=== PATIENT | female | born 1975 | race African-American/Black ===

== ENCOUNTER 2017-10-21 17:56 | Emergency (ER) | payer OTHER ==
[~2017-10-21] VITALS: Ht 162.6 cm; Wt 74.8 kg
[~2017-10-21 17:56] MED LIST: AMLODIPINE BESY10 MG PO; AMOXICILLIN 50500 M1 PO; BACTRIM DS TAB1 EACH PO; DOXYCYCLINE 10100 MG PO; FLAGYL500 MG PO; FLONASE 0.05%50 MCG NASAL; MACROBID 100 M100 M1 PO; NORVASC 5 MG TAB5 MG PO; NORVASC10 MG PO; PROVENTIL HFA6.7 G1 INH; TRINATE TABLET1 TAB PO
[2017-10-21 17:59] VITALS: BP 179/125
[2017-10-21] MEDS ORDERED: NORVASC10 MG PO ×2 (18:03→18:21)
== END 2017-10-21 18:30 | disposition home or self-care (01) ==
LOC: ER 17:56
DX: I10 Essential (primary) hypertension (principal); Z76.0 Encounter for issue of repeat prescription

== ENCOUNTER 2019-01-26 09:48 | Emergency (ER) | payer OTHER ==
[~2019-01-26] VITALS: Ht 160 cm; Wt 77.1 kg
[2019-01-26 09:49] VITALS: BP 173/107
[2019-01-26] MEDS ORDERED: NORVASC10 MG PO (10:50)
== END 2019-01-26 11:09 | disposition home or self-care (01) ==
LOC: ER 09:48
DX: I10 Essential (primary) hypertension (principal); E66.9 Obesity, unspecified; Z68.30 Body mass index [BMI] 30.0-30.9, adult

== ENCOUNTER 2020-06-02 08:47 | Emergency (ER) | payer OTHER ==
[~2020-06-02] VITALS: Ht 160 cm; Wt 97.5 kg
[2020-06-02 09:38] LABS: URINE BILIRUBIN NEGATIVE (Negative); URINE BLOOD 3+ (Negative); URINE CLARITY CLOUDY; URINE COLOR RED; URINE GLUCOSE-RANDOM* NEGATIVE (Negative); URINE KETONES NEGATIVE (Negative); URINE LEUKOCYTES-REFLEX TRACE (Negative); URINE NITRITE-REFLEX NEGATIVE (Negative); URINE PROTEIN (DIPSTICK) 1+ (Negative); URINE SPECIFIC GRAVITY >= 1.030 (1.005-1.035); URINE UROBILINOGEN 0.2 E.U./dl (0.2-1.0)
[2020-06-02 10:47] LABS: MUCUS 0-3 Light strn/LPF (None Seen)
[2020-06-02 10:48] LABS: CASTS None Seen /LPF (None Seen); CRYSTALS None Seen /LPF (None Seen); SQUAMOUS 0-3 Few /LPF (0-3)
[2020-06-02 10:49] LABS: BACTERIA-REFLEX 1-9 Few /HPF (None Seen); URINE WBC-REFLEX 0-5 Rare /HPF (0-5)
[2020-06-02 12:52] VITALS: BP 152/92
[2020-06-02] MEDS ORDERED: HYDROCODON-ACE1 EAC7 PO (13:31)
== END 2020-06-02 13:34 | disposition home or self-care (01) ==
LOC: ER 08:47
PROVIDERS: Emergency Medicine
DX: O03.4 Incomplete spontaneous abortion without complication (principal); I10 Essential (primary) hypertension; Z79.899 Other long term (current) drug therapy

== ENCOUNTER 2020-10-31 08:30 | Emergency (ER) | payer OTHER ==
[~2020-10-31] VITALS: Ht 165.1 cm; Wt 72.6 kg
[~2020-10-31 08:30] MED LIST changes: +HYDROCODON-ACE1 EAC7 PO
[2020-10-31] MEDS ORDERED: FLAGYL500 M1 PO (09:34)
[2020-10-31] MEDS ORDERED: DOXYCYCLINE 10100 MG PO (09:34)
[2020-10-31 09:42] VITALS: BP 163/104
== END 2020-10-31 09:42 | disposition home or self-care (01) ==
LOC: ER 08:30
DX: N89.8 Other specified noninflammatory disorders of vagina (principal); A59.09 Other urogenital trichomoniasis; I10 Essential (primary) hypertension; Z79.899 Other long term (current) drug therapy

== ENCOUNTER 2021-02-27 08:44 | Emergency (ER) | payer OTHER ==
[~2021-02-27] VITALS: Ht 165.1 cm; Wt 72.6 kg
[~2021-02-27 08:44] MED LIST changes: +FLAGYL500 M1 PO
[2021-02-27 08:48] VITALS: BP 193/121
[2021-02-27 09:14] LABS: URINE BILIRUBIN NEGATIVE (Negative); URINE BLOOD NEGATIVE (Negative); URINE CLARITY CLEAR; URINE COLOR YELLOW; URINE GLUCOSE-RANDOM* NEGATIVE (Negative); URINE KETONES NEGATIVE (Negative); URINE LEUKOCYTES-REFLEX 2+ (Negative); URINE NITRITE-REFLEX NEGATIVE (Negative); URINE PROTEIN (DIPSTICK) NEGATIVE (Negative); URINE UROBILINOGEN 0.2 E.U./dl (0.2-1.0)
[2021-02-27 10:36] LABS: CASTS None Seen /LPF (None Seen); MUCUS 0-3 Light strn/LPF (None Seen); SQUAMOUS >10 Many /LPF (0-3)
[2021-02-27 10:37] LABS: BACTERIA-REFLEX 1-9 Few /HPF (None Seen); CRYSTALS None Seen /LPF (None Seen); URINE RBC 1-2 Rare /HPF (NONE SEEN); URINE WBC-REFLEX 6-15 Few /HPF (0-5)
[2021-02-27] MEDS ORDERED: NORVASC5 MG PO (10:40)
[2021-02-27] MEDS ORDERED: DOXYCYCLINE 10100 MG PO (10:40)
[2021-02-27] MEDS ORDERED: FLAGYL500 M1 PO (10:40)
== END 2021-02-27 10:50 | disposition home or self-care (01) ==
LOC: ER 08:44
PROVIDERS: Emergency Medicine
DX: A59.9 Trichomoniasis, unspecified (principal); R30.0 Dysuria; I10 Essential (primary) hypertension